=== PATIENT | male | born 1960 | race American Indian/Alaskan Native ===

== ENCOUNTER 2016-09-02 00:02 | Observation (INO) | payer MEDICAID ==
[2016-09-02 00:03] VITALS: BMI 34.0
--- NOTE | 2016-09-02 01:14 | ED PDOC ---
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 States since being discharged she has not been able to take his high blood pressure medication, hydrochlorothiazide, since he has not been able to get to the pharmacy. Patient states that when he does not take his hydrochlorothiazide his legs tend to swell. He does state that he has a history of prior DVT in the past and currently has an IVC filter. Otherwise: (- ) trauma/injury, (-) chest pain, (-) dyspnea, (-) SOB, (-) hemoptysis, (-) fever , (-) CHF, (-) known malignancy. (Venessa Sheth PA-C) Past Medical History - Provider Review Nursing Documentation Reviewed: Yes - Infectious Disease Hx of Infectious Diseases: None - Cardiac Hx Hypertension: Yes Hx Peripheral Edema: Yes - Pulmonary Hx Pulmonary Embolism: Yes - Neurological Hx Seizures: Yes - Gastrointestinal Hx Gastritis: Yes - Genitourinary/Gynecological Hx Urinary Tract Infection: Yes - Psychiatric Hx Substance Use: No - Anesthesia Hx Anesthesia: No <Venessa Sheth PA-C - Last Filed: 09/02/16 01:10> Family/Social History - Physician Review Nursing Documentation Reviewed: Yes Family/Social History: No Known Family HX Smoking Status: Heavy Smoker > 10 Cigarettes Daily Hx Alcohol Use: No Hx Substance Use: No <Venessa Sheth PA-C - Last Filed: 09/02/16 01:10> Allergies/Home Meds <Venessa Sheth PA-C - Last Filed: 09/02/16 01:10> <Rufino Nowak - Last Filed: 09/02/16 06:53> Allergies/Adverse Reactions: Allergies No Known Allergies Allergy (Verified 08/28/16 06:23) Home Medications: Home Meds Medication Instructions Recorded Confirmed Enoxaparin [Lovenox] 40 mg SQ DAILY 05/17/16 05/17/16 Levetiracetam [Keppra] 750 mg PO DAILY 05/17/16 05/17/16 Review of Systems - Review of Systems Constitutional: Normal. absent: Fatigue, Weight Change, Fevers Respiratory: Normal. absent: SOB, Cough Cardiovascular: Normal, Edema (L leg). absent: Chest Pain, Palpitations Musculoskeletal: Normal. absent: Arthralgias, Back Pain Skin: Normal. absent: Rash, Pruritis Neurological: Normal. absent: Headache, Dizziness, Other (chronic L sided weakness from CVA) <Venessa Sheth PA-C - Last Filed: 09/02/16 01:10> Physical Exam <Venessa Sheth PA-C - Last Filed: 09/02/16 01:10> <Rufino Nowak - Last Filed: 09/02/16 06:53> - Physical Exam Narrative Physical Exam (Text): 09/02/16 01:15 GENERAL APPEARANCE: Patient is awake, alert, oriented x 3, in no acute distress. SKIN: Warm, dry; (-) cyanosis; (-) rash. HEAD: (-) scalp swelling, (-) tenderness. EYES: (-) conjunctival pallor, (-) scleral icterus. ENMT: Pharynx: (-) erythema; airway patent: (-) stridor; mucous membranes moist. NECK: (-) tenderness, (-) stiffness, (-) lymphadenopathy, (-) thyromegaly. CHEST AND RESPIRATORY: (-) rales, (-) rhonchi, (-) wheezes, (-) pleural friction rub; breath sounds equal bilaterally. HEART AND CARDIOVASCULAR: (-) irregularity; (-) murmur, (-) gallop, (-) pericardial rub. ABDOMEN AND GI: Soft; (-) tenderness, (-) guarding, (-) rebound, (-) palpable masses, (-) CVA tenderness. EXTREMITIES: (+) 2+ pitting edema of the L leg from the knee to the foot with ( -) tenderness and (-) palpable cord. Opposite leg: normal. Distal pulses: 2+. NEURO AND PSYCH: Mental status as above. Cranial nerves grossly intact; strength symmetric. (Venessa Sheth PA-C) Vital Signs Temp Pulse Resp BP Pulse Ox 09/02/16 05:14 98.4 F 80 16 112/78 97 09/02/16 03:07 98.0 F 77 18 110/80 98 09/02/16 00:12 99.1 F 83 18 162/94 H 97 Medical Decision Making <Venessa Sheth PA-C - Last Filed: 09/02/16 01:10> <Rufino Nowak - Last Filed: 09/02/16 06:53> ED Course and Treatment: 09/02/16 01:17 56 yo M with h/o HTN, CVA with L sided weakness, presents with L leg swelling after being d/c from rehab 3 days ago. Plan: -- Labs -- Reassess and disposition -- Duplex US LLE (Venessa Sheth PA-C) - RAD Interpretation Radiology Orders: 09/02/16 00:44 DUPLEX LOWER EXTRM VEIN LEFT [US] Stat - Medication Orders Current Medication Orders: Tetanus/Reduced Diphtheria/Acell Pertussis (Boostrix Vaccine Inj) 0.5 ml IM .ONCE ONE Stop: 09/02/16 06:50 ED OBSERVATION <Venessa Sheth PA-C - Last Filed: 09/02/16 01:10> Discharge: Yes Date of observation admission: 09/02/16 Time of observation admission: 01:00 <Rufino Nowak - Last Filed: 09/02/16 06:53> - Observation admission statement Patient is being placed in observation because:: left leg swelling (Rufino Nowak) - Goals of Observation Goals of observation are:: pending US results and disposition (Rufino Nowak) - Progress Note Progress Note: 09/02/16 03:08 Patient resting comfortably with no new complaints. 09/02/16 06:09 Patient currently sleeping with no acute distress. stable vitals. (Rufino Nowak) - PA / LEAD PRINCIPAL TECHNICAL ARCHITECT / Resident Statement MD/DO has reviewed & agrees with the documentation as recorded. <Venessa Sheth PA-C - Last Filed: 09/02/16 01:10> - PA / LEAD PRINCIPAL TECHNICAL ARCHITECT / Resident Statement / has reviewed & agrees with the documentation as recorded. <Rufino Nowak - Last Filed: 09/02/16 06:53> Disposition/Present on Arrival - Present on Arrival Any Indicators Present on Arrival: No History of DVT/PE: Yes History of Uncontrolled Diabetes: No Urinary Catheter: No History of Decub. Ulcer: No History Surgical Site Infection Following: None - Disposition Have Diagnosis and Disposition been Completed?: Yes <Venessa Sheth PA-C - Last Filed: 09/02/16 01:10> - Present on Arrival Any Indicators Present on Arrival: No - Disposition Have Diagnosis and Disposition been Completed?: Yes Disposition Time: 06:53 <Rufino oNwak - Last Filed: 09/02/16 06:53> - Disposition Diagnosis: Lower extremity edema Disposition: HOME/ ROUTINE Patient Problems: Current Active Problems Problem Status Diagnosed Lower extremity edema Acute Condition: GOOD
[2016-09-02 01:20] LABS: ADD MANUAL DIFF? NO
[2016-09-02 01:25] LABS: BASO # 0.03 K/mm3 (0.0-2.0); BASO % 0.3 % (0.0-3.0); EOS # 0.2 (0.0-0.7); EOS % 1.9 % (1.5-5.0); GRAN # 5.32 (1.4-6.5); GRAN % 54.7 % (50.0-68.0); HEMATOCRIT 36.9 % (42.0-52.0); LYMPH # 3.7 (1.2-3.4); LYMPH % 37.9 % (22.0-35.0); MEAN CELL VOLUME 75.2 fL (80.0-105.0); MEAN CORPUSCULAR HEMOGLOBIN 24.6 pg (25.0-35.0); MEAN CORPUSCULAR HGB CONC 32.8 g/dl (31.0-37.0); MONO # 0.5 (0.1-0.6); MONO % 5.2 % (1.0-6.0); PLATELET COUNT 197 10^3/uL (120.0-450.0); RED CELL DISTRIBUTION WIDTH 14.6 % (11.5-14.5); WHITE BLOOD COUNT 9.7 10^3/ul (4.5-11.0)
[2016-09-02 01:34] LABS: ALKALINE PHOSPHATASE 66 U/L (38-133); ALT/SGPT 30 U/L (7-56); AST/SGOT 24 U/L (15-59); BILIRUBIN,TOTAL 0.8 mg/dL (0.2-1.3); BLOOD UREA NITROGEN 10 mg/dL (7-21); CALCIUM 9.3 mg/dL (8.4-10.5); CARBON DIOXIDE 28 mmol/L (21-33); CHLORIDE 105 mmol/L (98-107); GFR AFRICAN-AMERICAN > 60; GLUCOSE,RANDOM 93 mg/dL (70-110); POTASSIUM 3.2 mmol/L (3.6-5.0); SODIUM 142 mmol/L (132-148); TOTAL PROTEIN 7.3 g/dL (5.8-8.3)
[2016-09-02 05:15] VITALS: BP 112/78; PULSE 80; RESP 16; TEMP 98.4; O2SAT 97
[2016-09-02] MEDS ORDERED: TDAP Vaccine 0.5 mL Syr IM ONE (06:49)
--- NOTE | 2016-09-02 09:03 | US ---
PROCEDURE: Left lower extremity venous US HISTORY: Leg pain and swelling. Evaluate for DVT. PHYSICIAN(S): Amaury Cam MD. TECHNIQUE: Duplex sonography and color-flow Doppler with graded compression were used to evaluate the deep venous system of the left lower extremity. The exam is limited by body habitus and edema. The tibial veins are not adequately seen. FINDINGS: The visualized deep venous system of the left lower extremity is sonographically normal and compressible. Normal wave forms and augmentation are seen. There is no sonographic evidence for deep venous thrombosis in the visualized segments of the left lower extremity. IMPRESSION: 1. No sonographic evidence for deep venous thrombosis in the visualized segments of the left lower extremity. 2. Limited study.
== END 2016-09-02 06:53 | disposition home or self-care (01) ==
LOC: ED 00:02 → EROBSV 01:00
PROVIDERS: ADMIT Emergency Medicine; ATTEND Emergency Medicine
DX: R60.9 Edema, unspecified (principal); I10 Essential (primary) hypertension; Z86.73 Personal history of transient ischemic attack (TIA), and cerebral infarction without residual deficits; F17.210 Nicotine dependence, cigarettes, uncomplicated; Z23 Encounter for immunization
CPT/HCPCS: 80053; 83880; 85025; 90471; 90715; 93971; 99284; G0378

== ENCOUNTER 2016-11-20 06:23 | Inpatient (IN) | payer MEDICAID ==
[2016-11-20 06:23] VITALS: BMI 34.0
--- NOTE | 2016-11-20 07:28 | ED PDOC ---
Arrival/HPI - General Chief Complaint: Shortness Of Breath Time Seen by Provider: 11/20/16 06:25 Historian: Patient - History of Present Illness Narrative History of Present Illness (Text): 11/20/16 07:19 A 56 year old male, whose past medical history includes seizure disorder and CVA with left upper and lower extremity deficit, presents to the emergency department complaining of shortness of breath since 4am this morning. Patient states the pain is worse with moment. Patient denies any fever, chills, nausea, vomiting, diarrhea, abdominal pain, chest pain, cough or any other complaints. Prior records show patient was treated for COPD/CHF. PMD: Dr. Goss Time/Duration: Other (4am this morning) Symptom Course: Unchanged Quality: Other Context: Home Past Medical History - Provider Review Nursing Documentation Reviewed: Yes - Infectious Disease Hx of Infectious Diseases: None - Cardiac Hx Atrial Fibrillation: No Hx Cardiac Arrhythmia: No Hx Congestive Heart Failure: No Hx Hypertension: Yes Hx Mitral Valve Prolapse: No Hx Pacemaker: No Hx Peripheral Edema: Yes - Pulmonary Hx Asthma: No Hx Bronchitis: No Hx Chronic Obstructive Pulmonary Disease (COPD): No Hx Emphysema: No Hx Pneumonia: No Hx Pulmonary Embolism: Yes Hx Sleep Apnea: No - Neurological HX Cerebrovascular Accident: Yes (Left sided paralysis) Hx Seizures: Yes - HEENT Hx HEENT Disorder: No - Renal Hx Renal Disorder: No - Endocrine/Metabolic Hx Endocrine Disorders: No - Hematological/Oncological Hx Blood Disorders: No - Integumentary Hx Dermatological Disorder: No - Musculoskeletal/Rheumatological Hx Falls: No Hx Unsteady Gait: Yes - Gastrointestinal Hx Gastritis: Yes - Genitourinary/Gynecological Hx Incontinence: Yes Hx Urinary Tract Infection: Yes - Psychiatric Hx Substance Use: No (as per pt) Other/Comment: noncompliance with meds/ medical regimen - Surgical History Other/Comment: ivc filter - Anesthesia Hx Anesthesia: Yes Hx Anesthesia Reactions: No Family/Social History - Physician Review Nursing Documentation Reviewed: Yes Family/Social History: No Known Family HX Smoking Status: Heavy Smoker > 10 Cigarettes Daily Hx Alcohol Use: No Hx Substance Use: No (as per pt) Allergies/Home Meds Allergies/Adverse Reactions: Allergies No Known Allergies Allergy (Verified 11/20/16 06:29) Home Medications: Home Meds Medication Instructions Recorded Confirmed Levetiracetam [Keppra] 750 mg PO DAILY 05/17/16 11/20/16 Enalapril Maleate [Vasotec] 5 mg PO DAILY 09/15/16 11/20/16 Furosemide [Lasix] 40 mg PO BID 09/15/16 11/20/16 Review of Systems - Physician Review All systems were reviewed & negative as marked: Yes - Review of Systems Constitutional: absent: Fevers, Night Sweats Respiratory: SOB. absent: Cough Cardiovascular: absent: Chest Pain Gastrointestinal: absent: Abdominal Pain, Diarrhea, Nausea, Vomiting Physical Exam Vital Signs Temp Pulse Resp BP Pulse Ox 11/20/16 10:40 69 145/103 H 11/20/16 10:39 69 145/103 H 11/20/16 10:38 69 145/103 H 11/20/16 09:55 75 19 153/99 H 96 11/20/16 08:52 164/110 H 11/20/16 07:20 97.7 F 79 19 132/99 H 96 Appearance: Positive for: Well-Appearing, Non-Toxic, Comfortable Pain Distress: None Mental Status: Positive for: Alert and Oriented X 3 - Systems Exam Head: Present: Atraumatic, Normocephalic Pupils: Present: PERRL Extroacular Muscles: Present: EOMI Conjunctiva: Present: Normal Mouth: Present: Moist Mucous Membranes Neck: Present: Normal Range of Motion Respiratory/Chest: Present: Good Air Exchange, Rales (Rales in bilateral bases) . No: Respiratory Distress, Accessory Muscle Use Cardiovascular: Present: Regular Rate and Rhythm, Normal S1, S2. No: Murmurs Abdomen: Present: Normal Bowel Sounds. No: Tenderness, Distention, Peritoneal Signs Back: Present: Normal Inspection Upper Extremity: Present: Normal Inspection, NORMAL PULSES. No: Cyanosis, Edema Lower Extremity: Present: Edema (+1 pitting edema in right lower extremity, +3 pitting edema in left lower extremity), NORMAL PULSES. No: CALF TENDERNESS Neurological: Present: GCS=15, Speech Normal Skin: Present: Warm, Dry, Normal Color. No: Rashes Psychiatric: Present: Alert, Oriented x 3, Normal Insight, Normal Concentration Medical Decision Making ED Course and Treatment: 11/20/16 07:19 EKG shows NSR at 83 BPM with LAD, nonspecific IVCD, no STEMI. Interpreted by me. 11/20/16 08:10 Chest X-ray read and interpreted by me, which shows bilateral opacities likely representing pulmonary edema. 11/20/16 08:30 Ultrasound is negative for DVT. 11/20/16 09:07 I have discussed the results and plan with the patient, who expresses understanding. Patient in agreement with plan. - Lab Interpretations Lab Results: 11/20/16 07:30 11/20/16 07:30 Lab Results 11/20/16 07:30: PT 11.1, INR 1.03, APTT 28.1 11/20/16 07:30: Sodium 143, Potassium 3.1 L, Chloride 106, Carbon Dioxide 27, Anion Gap 13, BUN 13, Creatinine 0.9, Est GFR ( Amer) > 60, Est GFR (Non- Af Amer) > 60, Random Glucose 96, Calcium 9.1, Total Bilirubin 0.9, AST 21, ALT 18, Alkaline Phosphatase 70, Troponin I 0.05, NT-Pro-B Natriuret Pep 3020 H, Total Protein 6.9, Albumin 3.7, Globulin 3.2, Albumin/Globulin Ratio 1.2 11/20/16 07:30: pO2 45, VBG pH 7.37, VBG pCO2 48.0, VBG HCO3 27.7, VBG O2 Sat ( Calc) 79.6 H, VBG Base Excess 1.7 11/20/16 07:30: WBC 10.6, RBC 5.08, Hgb 12.4 L, Hct 38.2 L, MCV 75.2 L, MCH 24.4 L, MCHC 32.5, RDW 14.2, Plt Count 237, MPV 10.6, Gran % 72.6 H, Lymph % ( Auto) 21.2 L, [place] % (Auto) 5.0, Eos % (Auto) 0.9 L, Baso % (Auto) 0.3, Gran # 7.72 H, Lymph # 2.3, [place] # 0.5, Eos # 0.1, Baso # 0.03 - RAD Interpretation Radiology Orders: 11/20/16 07:19 CHEST PORTABLE [RAD] Stat 11/20/16 07:20 DUPLEX LOWER EXTRM VEIN LEFT [US] Stat - Medication Orders Current Medication Orders: Carvedilol (Coreg) 6.25 mg PO BID [facility] Last Admin: 11/20/16 10:38 Dose: 6.25 mg Enoxaparin Sodium (Lovenox) 40 mg SC DAILY [facility] PRN Reason: Protocol Last Admin: 11/20/16 10:41 Dose: 40 mg Furosemide (Lasix) 40 mg IVP Q12 [facility] Last Admin: 11/20/16 10:42 Dose: Levetiracetam (Keppra) 750 mg PO DAILY [facility] Lisinopril (Zestril) 10 mg PO DAILY [facility] Ondansetron HCl (Zofran Inj) 4 mg IVP Q6H PRN PRN Reason: Nausea/Vomiting Pantoprazole Sodium (Protonix Ec Tab) 40 mg PO 0600 [facility] Discontinued Medications Aspirin (Aspirin Chewable) 324 mg PO STAT STA Stop: 11/20/16 07:21 Last Admin: 11/20/16 07:37 Dose: 324 mg Furosemide (Lasix) 40 mg IVP STAT STA Stop: 11/20/16 08:14 Last Admin: 11/20/16 08:52 Dose: 40 mg Levetiracetam (Keppra) 750 mg PO .EXTRA DOSE ONE Stop: 11/20/16 10:16 Last Admin: 11/20/16 10:40 Dose: 750 mg Lisinopril (Zestril) 5 mg PO DAILY [facility] Lisinopril (Zestril) 5 mg PO ONCE ONE Stop: 11/20/16 10:16 Last Admin: 11/20/16 10:40 Dose: 5 mg Lisinopril (Zestril) 10 mg PO .EXTRA DOSE ONE Stop: 11/20/16 10:16 Last Admin: 11/20/16 10:39 Dose: 10 mg Non-Formulary Medication (Enalapril Maleate [Vasotec]) 5 mg PO DAILY [facility] Potassium Chloride (K-Dur 20 Meq Er Tab) 40 meq PO STAT STA Stop: 11/20/16 08:15 Last Admin: 11/20/16 08:51 Dose: 40 meq - Scribe Statement The provider has reviewed the documentation as recorded by the Kaiden Bowles Provider Scribe Attestation: All medical record entries made by the Scribe were at my direction and personally dictated by me. I have reviewed the chart and agree that the record accurately reflects my personal performance of the history, physical exam, medical decision making, and the department course for this patient. I have also personally directed, reviewed, and agree with the discharge instructions and disposition. Disposition/Present on Arrival - Present on Arrival Any Indicators Present on Arrival: Yes History of DVT/PE: Yes History of Uncontrolled Diabetes: No Urinary Catheter: No History of Decub. Ulcer: No History Surgical Site Infection Following: None - Disposition Have Diagnosis and Disposition been Completed?: Yes Diagnosis: CHF exacerbation Disposition: HOSPITALIZED Disposition Time: 09:07 Patient Problems: Current Active Problems Problem Status Onset CHF exacerbation Acute Condition: STABLE
[2016-11-20 07:53] LABS: BASO # 0.03 K/mm3 (0.0-2.0); BASO % 0.3 % (0.0-3.0); EOS # 0.1 (0.0-0.7); EOS % 0.9 % (1.5-5.0); GRAN # 7.72 (1.4-6.5); GRAN % 72.6 % (50.0-68.0); HEMOGLOBIN 12.4 gm/dL (14.0-18.0); LYMPH # 2.3 (1.2-3.4); LYMPH % 21.2 % (22.0-35.0); MEAN CELL VOLUME 75.2 fL (80.0-105.0); MEAN CORPUSCULAR HEMOGLOBIN 24.4 pg (25.0-35.0); MEAN CORPUSCULAR HGB CONC 32.5 g/dl (31.0-37.0); MEAN PLATELET VOLUME 10.6 fl (7.0-11.0); MONO # 0.5 (0.1-0.6); PLATELET COUNT 237 10^3/uL (120.0-450.0); RBC 5.08 10^6/uL (3.5-6.1); RED CELL DISTRIBUTION WIDTH 14.2 % (11.5-14.5); WHITE BLOOD COUNT 10.6 10^3/ul (4.5-11.0)
[2016-11-20 07:54] LABS: VENOUS BLOOD GAS BASE EXCESS 1.7 mmol/L (0.0-2.0); VENOUS BLOOD GAS PO2 45 mm/Hg (30-55); VENOUS BLOOD PH 7.37 (7.32-7.43)
[2016-11-20 07:57] LABS: ALB/GLOB RATIO 1.2 (1.1-1.8); ALBUMIN 3.7 g/dL (3.0-4.8); ALT/SGPT 18 U/L (7-56); AST/SGOT 21 U/L (15-59); BLOOD UREA NITROGEN 13 mg/dL (7-21); CALCIUM 9.1 mg/dL (8.4-10.5); GFR AFRICAN-AMERICAN > 60; GFR NON-AFRICAN AMERICAN > 60
[2016-11-20 08:03] LABS: INR 1.03 (0.93-1.08); PARTIAL THROMBOPLASTIN TIME 28.1 Seconds (23.7-30.8); PROTHROMBIN TIME 11.1 Seconds (9.9-11.8)
[2016-11-20 08:08] LABS: B-TYPE NATRIURETIC PEPTIDE 3020 pg/mL (0-450); TROPONIN I 0.05 ng/mL
[2016-11-20] MEDS ORDERED: Potassium Chloride 20 mEq ER Tab PO STA (08:14)
--- NOTE | 2016-11-20 09:24 | RAD ---
HISTORY: sob COMPARISON: 05/20/2016 FINDINGS: LUNGS: No active pulmonary disease. PLEURA: No significant pleural effusion identified, no pneumothorax apparent. CARDIOVASCULAR: Mild cardiomegaly. Mild vascular congestion OSSEOUS STRUCTURES: No significant abnormalities. VISUALIZED UPPER ABDOMEN: Normal. OTHER FINDINGS: None. IMPRESSION: Mild vascular congestion
[2016-11-20 10:05] LABS: URINE BILIRUBIN NEGATIVE (NEGATIVE); URINE BLOOD NEGATIVE (NEGATIVE); URINE GLUCOSE (UA) NEGATIVE (NEGATIVE); URINE LEUKOCYTE ESTERASE NEGATIVE Leu/uL (NEGATIVE); URINE NITRATE NEGATIVE (NEGATIVE); URINE PROTEIN TRACE mg/dL (<30 mg/dL); URINE UROBILINOGEN 0.2 E.U./dL (<1 E.U./dL)
[2016-11-20 10:10] LABS: URINE APPEARANCE CLEAR (CLEAR); URINE COLOR YELLOW (YELLOW)
[2016-11-20 10:13] LABS: URINE RBC NEGATIVE /hpf (0-2); URINE WBC NEGATIVE /hpf (0-6)
[2016-11-20] MEDS ORDERED: LEVETIRACETAM 750 MG PO SCH (10:15)
[2016-11-20] MEDS ORDERED: Enoxaparin 40 mg Syringe SC SCH (10:15)
[2016-11-20] MEDS ORDERED: Non Formulary Medication (Enalapril Maleate [Vasotec] 5 MG) PO SCH (10:15)
--- NOTE | 2016-11-20 10:56 | CARD ---
APPROVED REPORT EKG Measurement Heart [id number] <Conclusion> Sinus rhythm with occasional premature ventricular complexes Possible Left atrial enlargement Nonspecific intraventricular block Cannot rule out Septal infarct, age undetermined Inferior infarct, age undetermined T wave abnormality, consider lateral ischemia
[2016-11-20] MEDS ORDERED: Enoxaparin 120 mg Syringe SC SCH (15:45)
--- NOTE | 2016-11-20 16:20 | CP.PCM.HP ---
<Farnkie Marrufo - Last Filed: 11/20/16 16:13> History of Present Illness - History of Present Illness History of Present Illness: 56 year old male, whose pmh includes COPD, CHF, seizure disorder and CVA (left upper and lower extremity neuro deficit), presents to the ED complaining of shortness of breath. Pt states that her symptom first started at 4am this morning. He denies any chest pain but does c/o of tightness. He states that this has occurred before but this time it is worse. He sleeps with 2 pillows at night and denies waking up in the middle of night gasping for air. He also states that his legs has been more swollen lately. Patient denies any headaches , dizziness, cough, f/c, nausea, vomiting, diarrhea, abdominal pain, chest pain , or any other complaints. PMH: as above PSH: denies Med: refer to [facility] ALL: [facility] SH: smokes half ppd for "many year", denies drinking or drugs FH: denies Present on Admission - Present on Admission Any Indicators Present on Admission: No Review of Systems - Review of Systems All systems: reviewed and no additional remarkable complaints except (HPI) Past Patient History - Infectious Disease Hx of Infectious Diseases: None - Past Medical History & Family History Past Medical History?: Yes - Past Social History Smoking Status: Former Smoker - CARDIAC Hx Cardia Arrhythmia: No Hx Congestive Heart Failure: Yes Hx Hypertension: Yes Hx Mitral Valve Prolapse: No Hx Pacemaker: No Hx Peripheral Edema: Yes - PULMONARY Hx Asthma: No Hx Bronchitis: No Hx Chronic Obstructive Pulmonary Disease (COPD): No Hx Emphysema: No Hx Pneumonia: No Hx Sleep Apnea: No - NEUROLOGICAL HX Cerebrovascular Accident: Yes (Left sided paralysis) Hx Seizures: Yes - HEENT Hx HEENT Problems: No - RENAL Hx Chronic Kidney Disease: No - ENDOCRINE/METABOLIC Hx Endocrine Disorders: No - HEMATOLOGICAL/ONCOLOGICAL Hx Blood Disorders: No - INTEGUMENTARY Hx Dermatological Problems: No - MUSCULOSKELETAL/RHEUMATOLOGICAL Hx Falls: Yes - GASTROINTESTINAL Hx Gastritis: Yes - GENITOURINARY/GYNECOLOGICAL Hx Incontinence: Yes Hx Urinary Tract Infection: Yes - PSYCHIATRIC Other/Comment: noncompliance with meds/ medical regimen - SURGICAL HISTORY Other/Comment: ivc filter - ANESTHESIA Hx Anesthesia: Yes Hx Anesthesia Reactions: No Meds Allergies/Adverse Reactions: Allergies Allergy/AdvReac Type Severity Reaction Status Date / Time No Known Allergies Allergy Verified 11/20/16 06:29 Physical Exam - Constitutional Appears: No Acute Distress - Head Exam Head Exam: ATRAUMATIC, NORMAL INSPECTION, NORMOCEPHALIC - Eye Exam Eye Exam: EOMI, Normal appearance, PERRL Pupil Exam: NORMAL ACCOMODATION, PERRL - ENT Exam ENT Exam: Mucous Membranes Moist, Normal Exam - Neck Exam Neck exam: Positive for: Normal Inspection - Respiratory Exam Respiratory Exam: Clear to Auscultation Bilateral, Rales. absent: Rhonchi, Wheezes Additional comments: b/l bases - Cardiovascular Exam Cardiovascular Exam: REGULAR RHYTHM, RRR, +S1, +S2 - GI/Abdominal Exam GI & Abdominal Exam: Normal Bowel Sounds, Soft. absent: Tenderness - Extremities Exam Extremities exam: Positive for: normal inspection, pedal edema. Negative for: calf tenderness - Back Exam Back exam: NORMAL INSPECTION - Neurological Exam Neurological exam: Alert, CN II-XII Intact, Normal Gait, Oriented x3, Reflexes Normal - Psychiatric Exam Psychiatric exam: Normal Affect, Normal Mood - Skin Skin Exam: Dry, Intact, Normal Color, Warm Results - Vital Signs Recent Vital Signs: Last Vital Signs Temp 98.4 F 11/20/16 12:00 Pulse 90 11/20/16 12:00 Resp 20 11/20/16 12:00 BP 127/92 H 11/20/16 12:00 Pulse Ox 96 11/20/16 09:55 - Labs Result Diagrams: 11/20/16 07:30 11/20/16 07:30 Labs: Laboratory Results - last 24 hr 11/20/16 11/20/16 09:50 13:10 Troponin I 0.04 Urine Color Yellow Urine Appearance Clear Urine pH 7.0 Ur Specific [place] 1.015 Urine Protein Trace H Urine Glucose (UA) Negative Urine Ketones Negative Urine Blood Negative Urine Nitrate Negative Urine Bilirubin Negative Urine Urobilinogen 0.2 Ur Leukocyte Esterase Negative Urine RBC Negative Urine WBC Negative Assessment & Plan - Assessment and Plan (Free Text) Assessment: 56 year old male, whose pmh includes COPD, CHF, seizure disorder and CVA (left upper and lower extremity neuro deficit), presents to the ED complaining of shortness of breath. Likely 2/2 CHF exacerbation. 1. CHF exacerbation - trops .05--> .04 - BNP: 3020 - EKG: sinus rhythm with occasional PVC, possible L atrial enlargement, non spcific intra ventricular block, cannot r/o septal infarct, inferior infarct age undeterminate, T wave abnormality, consider Lateral ischemia - CXR showed mild vascular congestion - Ext US: negative for DVT - Lasix 40mg stat, and asa 324mg stat given in ED - Lasix 40mg BID IVP started - Cardiology consulted and placed on Lovenox 110mg Q12 BID, Aldactone 25, KCl 20 po 2. HTN: - Cont Coreg, and Lisinopril 3. Seizure dx : - Cont Keppra - Seizure precautions - fall precautions 4. GI/DVT ppx - Protonix and Lovenox Case and plan was seen, reviewed and discussed in detail with Dr Chambers. <Trish MARAVILLA,Lizzie - Last Filed: 11/20/16 16:38> Results - Vital Signs Recent Vital Signs: Last Vital Signs Temp 98.4 F 11/20/16 12:00 Pulse 90 11/20/16 12:00 Resp 20 11/20/16 12:00 BP 127/92 H 11/20/16 12:00 Pulse Ox 96 11/20/16 09:55 - Labs Result Diagrams: 11/20/16 07:30 11/20/16 07:30 Labs: Laboratory Results - last 24 hr 11/20/16 11/20/16 09:50 13:10 Troponin I 0.04 Urine Color Yellow Urine Appearance Clear Urine pH 7.0 Ur Specific [place] 1.015 Urine Protein Trace H Urine Glucose (UA) Negative Urine Ketones Negative Urine Blood Negative Urine Nitrate Negative Urine Bilirubin Negative Urine Urobilinogen 0.2 Ur Leukocyte Esterase Negative Urine RBC Negative Urine WBC Negative Attending/Attestation - Attestation I have personally seen and examined this patient.: Yes I have fully participated in the care of the patient.: Yes I have reviewed all pertinent clinical information: Yes Notes (Text): Patient was seen and examined with medical charge entry specialist .Agreed with resident assessment and plan. 56 yrs old male with PMH of CHF with systolic dysfunction,EF 35%,HTN,CVA with left sided residual weakness , and non compliance with medication is admitted with worsening dyspnea associated with leg swelling, found to have acute on chronic systolic CHF, will continue IV lasix, will monitor BUN and Creatinin.We will increase dose of lisinpril, .We will repeat Echo as last Echo was concerning for apical thrombus, patient was never started on anticoagulation and no NAKIA was done.We will also get Cardiology consult. Management plan was discussed in detail with patient Education was provided.
[2016-11-21] MEDS: Pantoprazole 40 mg EC Tab PO SCH (05:41)
[2016-11-21 06:50] LABS: BASO # 0.03 K/mm3 (0.0-2.0); BASO % 0.3 % (0.0-3.0); EOS # 0.1 (0.0-0.7); EOS % 1.2 % (1.5-5.0); GRAN # 5.97 (1.4-6.5); GRAN % 60.8 % (50.0-68.0); HEMOGLOBIN 11.2 gm/dL (14.0-18.0); LYMPH # 3.2 (1.2-3.4); LYMPH % 32.1 % (22.0-35.0); MEAN CELL VOLUME 74.7 fL (80.0-105.0); MEAN CORPUSCULAR HEMOGLOBIN 23.8 pg (25.0-35.0); MEAN CORPUSCULAR HGB CONC 31.9 g/dl (31.0-37.0); MEAN PLATELET VOLUME 11.1 fl (7.0-11.0); MONO # 0.6 (0.1-0.6); MONO % 5.6 % (1.0-6.0); PLATELET COUNT 229 10^3/uL (120.0-450.0); RED CELL DISTRIBUTION WIDTH 14.2 % (11.5-14.5); WHITE BLOOD COUNT 9.8 10^3/ul (4.5-11.0)
[2016-11-21 06:58] LABS: ALB/GLOB RATIO 1.1 (1.1-1.8); ALBUMIN 3.5 g/dL (3.0-4.8); ALT/SGPT 20 U/L (7-56); AST/SGOT 24 U/L (15-59); BLOOD UREA NITROGEN 15 mg/dL (7-21); CALCIUM 9.1 mg/dL (8.4-10.5); GFR AFRICAN-AMERICAN > 60; GFR NON-AFRICAN AMERICAN > 60
[2016-11-21] MEDS ORDERED: Potassium Chloride 40 mEq/30 ml LIQ UD PO STA (07:51)
[2016-11-21] MEDS ORDERED: Potassium Chloride 20 mEq ER Tab PO STA (08:05)
[2016-11-21] MEDS: Potassium Chloride 20 mEq ER Tab PO SCH (09:34)
[2016-11-22] MEDS: Enoxaparin 120 mg Syringe SC SCH ×2 (05:53→17:10)
[2016-11-22] MEDS: Pantoprazole 40 mg EC Tab PO SCH (05:53)
[2016-11-22 07:20] LABS: BASO # 0.02 K/mm3 (0.0-2.0); BASO % 0.2 % (0.0-3.0); EOS # 0.1 (0.0-0.7); EOS % 1.1 % (1.5-5.0); GRAN # 6.62 (1.4-6.5); GRAN % 68.3 % (50.0-68.0); HEMOGLOBIN 11.8 gm/dL (14.0-18.0); LYMPH # 2.3 (1.2-3.4); MEAN CELL VOLUME 74.3 fL (80.0-105.0); MEAN CORPUSCULAR HEMOGLOBIN 23.9 pg (25.0-35.0); MEAN CORPUSCULAR HGB CONC 32.2 g/dl (31.0-37.0); MEAN PLATELET VOLUME 10.4 fl (7.0-11.0); MONO # 0.6 (0.1-0.6); MONO % 6.4 % (1.0-6.0); PLATELET COUNT 237 10^3/uL (120.0-450.0); RBC 4.94 10^6/uL (3.5-6.1); RED CELL DISTRIBUTION WIDTH 14.4 % (11.5-14.5); WHITE BLOOD COUNT 9.7 10^3/ul (4.5-11.0)
[2016-11-22] MEDS ORDERED: Potassium Chloride 20 mEq ER Tab PO STA (07:39)
[2016-11-22 07:48] LABS: ALB/GLOB RATIO 1.2 (1.1-1.8); ALBUMIN 3.7 g/dL (3.0-4.8); ALT/SGPT 24 U/L (7-56); AST/SGOT 18 U/L (15-59); BLOOD UREA NITROGEN 12 mg/dL (7-21); CALCIUM 9.3 mg/dL (8.4-10.5); GFR AFRICAN-AMERICAN > 60; GFR NON-AFRICAN AMERICAN > 60
[2016-11-22] MEDS ORDERED: Potassium Chloride 20 mEq ER Tab PO ONE (08:25)
[2016-11-22] MEDS: Potassium Chloride 20 mEq ER Tab PO SCH (09:18)
--- NOTE | 2016-11-22 10:38 | CARD ---
APPROVED REPORT EXAM: Two-dimensional and M-mode echocardiogram with Doppler and color Doppler. INDICATION CHF/R/O THROMBUS 2D DIMENSIONS Left Atrium (2D)6.8 (1.6-4.0cm)IVSd1.2 (0.7-1.1cm) LVDd6.8 (3.9-5.9cm)PWd1.3 (0.7-1.1cm) LVDs5.9 (2.5-4.0cm)FS (%) 12.8 % LVEF (%)26.5 (>50%) M-Mode DIMENSIONS Aortic Root4.00 (2.2-3.7cm)Aortic Cusp Exc.2.10 (1.5-2.0cm) Aortic Valve AoV Peak Kmqndddz928.0cm/[place] GR.8mmHg Mitral Valve E/A ratio0.0 TDI E/Lateral E'0.0E/Medial E'0.0 Pulmonary Valve PV Peak Qbxnsvgs94.9cm/sPV Peak Grad.2mmHg Tricuspid Valve TR Peak [id number]/sRAP [id number] Peak Gr.43mmHg [id number] LEFT VENTRICLE The Left Ventricle is moderately dilated. There is mild concentric left ventricular hypertrophy. The systolic function is severely impaired.EF-25% There is moderately There is moderate to severe hypokinesis in the apical anterior wall.global hypokinesis of the left ventricle. Transmitral Doppler flow pattern is Grade II-pseudonormal filling dynamics. No left ventricle thrombus noted on this study. There is no ventricular septal defect visualized. There is no left ventricular aneurysm. There is no mass noted in the left ventricle. RIGHT VENTRICLE The right ventricle is moderately dilated. There is normal right ventricular wall thickness. Systolic function is moderately reduced. ATRIA The left atrium is severely dilated. The right atrium is borderline dilated. The interatrial septum is intact with no evidence for an atrial septal defect. AORTIC VALVE The aortic valve is thickened but opens well. There is trace aortic regurgitation. There is no aortic valvular stenosis. There is no aortic valvular vegetation. MITRAL VALVE The mitral valve is thickened but opens well. Mitral regurgitation is mild to moderate. There is no mitral valve stenosis. There is no evidence of mitral valve prolapse. TRICUSPID VALVE The tricuspid valve leaflets are thickened , but open well. There is mild tricuspid regurgitation.RVSP-53 mmof Hg There is no tricuspid valve stenosis. There is no tricuspid valve prolapse or vegetation. PULMONIC VALVE The pulmonic valve is not well visualized. There is trace pulmonic valvular regurgitation. There is no pulmonic valvular stenosis. GREAT VESSELS The aortic root is normal in size. The ascending aorta is normal in size. The pulmonary artery is normal. The IVC is dilated. PERICARDIAL EFFUSION There is no pleural effusion. There is no pericardial effusion. <Conclusion> Four chamber Dilatation, C/W CMP, EF-25% There is trace aortic regurgitation. Mitral regurgitation is mild to moderate. There is mild tricuspid regurgitation.RVSP-53 mmof Hg The IVC is dilated. There is no pericardial effusion. No vegetation or thrombus noted.
--- NOTE | 2016-11-22 11:33 | CP.PCM.PN ---
<Logan Sanchez - Last Filed: 11/22/16 11:33> Subjective - Date & Time of Evaluation Date of Evaluation: 11/22/16 Time of Evaluation: 11:30 - Subjective Subjective: Medicine progress note. Attending: Trish Pt seen and examined at bedside. No acute distress. No events overnight. Pt is feeling better. No fevers, chills, vomiting, diarrhea. Objective - Vital Signs/Intake and Output Vital Signs (last 24 hours): Temp Pulse Resp BP Pulse Ox 98.8 F 68 20 118/82 97 11/22/16 06:00 11/22/16 09:23 11/22/16 06:00 11/22/16 09:23 11/22/16 06:00 Intake and Output: 11/22/16 11/22/16 06:59 18:59 Intake Total 480 Output Total 2150 Balance -1670 - Medications Medications: Current Medications Carvedilol (Coreg) 6.25 mg PO BID [facility] Last Admin: 11/22/16 09:23 Dose: 6.25 mg Enoxaparin Sodium (Lovenox) 110 mg SC Q12H [facility] PRN Reason: Protocol Last Admin: 11/22/16 05:53 Dose: 110 mg Furosemide (Lasix) 40 mg IVP 0600,1800 [facility] Last Admin: 11/22/16 05:52 Dose: 40 mg Levetiracetam (Keppra) 750 mg PO DAILY [facility] Last Admin: 11/22/16 09:20 Dose: 750 mg Lisinopril (Zestril) 10 mg PO DAILY [facility] Last Admin: 11/22/16 09:23 Dose: 10 mg Ondansetron HCl (Zofran Inj) 4 mg IVP Q6H PRN PRN Reason: Nausea/Vomiting Pantoprazole Sodium (Protonix Ec Tab) 40 mg PO 0600 [facility] Last Admin: 11/22/16 05:53 Dose: 40 mg Potassium Chloride (K-Dur 20 Meq Er Tab) 20 meq PO DAILY [facility] Last Admin: 11/22/16 09:18 Dose: 20 meq Spironolactone (Aldactone) 25 mg PO DAILY [facility] Last Admin: 11/22/16 09:20 Dose: 25 mg - Labs Labs: 11/22/16 07:10 11/22/16 07:10 PT 11.1 Seconds (9.9-11.8) 11/20/16 07:30 INR 1.03 (0.93-1.08) 11/20/16 07:30 APTT 28.1 Seconds (23.7-30.8) 11/20/16 07:30 - Constitutional Appears: Non-toxic, No Acute Distress - Head Exam Head Exam: ATRAUMATIC, NORMAL INSPECTION, NORMOCEPHALIC - Eye Exam Eye Exam: EOMI - ENT Exam ENT Exam: Mucous Membranes Moist - Neck Exam Neck Exam: Full ROM, Normal Inspection - Respiratory Exam Respiratory Exam: NORMAL BREATHING PATTERN. absent: Respiratory Distress - Cardiovascular Exam Cardiovascular Exam: +S1, +S2 - GI/Abdominal Exam GI & Abdominal Exam: Soft, Normal Bowel Sounds. 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 Likely 2/2 CHF exacerbation. 1. CHF exacerbation - trops .05--> .04 - BNP: 3020, will repeat today - EKG: sinus rhythm with occasional PVC, possible L atrial enlargement, non spcific intra ventricular block, cannot r/o septal infarct, inferior infarct age undeterminate, T wave abnormality, consider lateral ischemia - CXR showed mild vascular congestion - Ext US: negative for DVT - Lasix 40mg stat, and asa 324mg stat given in ED - Lasix 40mg BID IVP started - Cardiology consulted and placed on Lovenox 110mg Q12 BID, Aldactone 25, KCl 20 po -will repeat CXR today 2. HTN: - Cont Coreg, and Lisinopril 3. Seizure dx : - Cont Keppra - Seizure precautions - fall precautions 4. GI/DVT ppx - Protonix and Lovenox Case and plan was seen, reviewed and discussed in detail with Dr Chambers. <Trish MARAVILLA,[facility] - Last Filed: 11/22/16 17:39> Objective - Vital Signs/Intake and Output Vital Signs (last 24 hours): Temp Pulse Resp BP Pulse Ox 98 F 74 18 141/94 H 97 11/22/16 12:00 11/22/16 14:00 11/22/16 12:00 11/22/16 17:11 11/22/16 06:00 Intake and Output: 11/22/16 11/22/16 06:59 18:59 Intake Total 480 Output Total 2150 Balance -1670 - Medications Medications: Current Medications Carvedilol (Coreg) 6.25 mg PO BID [facility] Last Admin: 11/22/16 17:10 Dose: 6.25 mg Enoxaparin Sodium (Lovenox) 110 mg SC Q12H [facility] PRN Reason: Protocol Last Admin: 11/22/16 17:10 Dose: 110 mg Furosemide (Lasix) 40 mg IVP 0600,1800 [facility] Last Admin: 11/22/16 17:11 Dose: 40 mg Levetiracetam (Keppra) 750 mg PO DAILY [facility] Last Admin: 11/22/16 09:20 Dose: 750 mg Lisinopril (Zestril) 10 mg PO DAILY [facility] Last Admin: 11/22/16 09:23 Dose: 10 mg Ondansetron HCl (Zofran Inj) 4 mg IVP Q6H PRN PRN Reason: Nausea/Vomiting Pantoprazole Sodium (Protonix Ec Tab) 40 mg PO 0600 [facility] Last Admin: 11/22/16 05:53 Dose: 40 mg Potassium Chloride (K-Dur 20 Meq Er Tab) 20 meq PO DAILY [facility] Last Admin: 11/22/16 09:18 Dose: 20 meq Spironolactone (Aldactone) 25 mg PO DAILY [facility] Last Admin: 11/22/16 09:20 Dose: 25 mg - Labs Labs: 11/22/16 07:10 11/22/16 07:10 PT 11.1 Seconds (9.9-11.8) 11/20/16 07:30 INR 1.03 (0.93-1.08) 11/20/16 07:30 APTT 28.1 Seconds (23.7-30.8) 11/20/16 07:30 Attending/Attestation - Attestation I have personally seen and examined this patient.: Yes I have fully participated in the care of the patient.: Yes I have reviewed all pertinent clinical information, including history, physical exam and plan: Yes Notes (Text): 11/22/16 17:37 Patient was seen and examined with medical representative .Agreed with resident assessment and plan. Patient is improving, still has significant leg edema.Dyspnea is improving.Echo shows EF 25%, no apical thrombus. We will continue IV lasix.Renal functions are stable. Blood pressure is better controlled. K was replaced. Management plan was discussed in detail with patient Education was provided.
--- NOTE | 2016-11-22 13:02 | RAD ---
HISTORY: Chest pain, exacerbation of CHF COMPARISON: 11/20/2016. FINDINGS: LUNGS: No active pulmonary disease. PLEURA: No significant pleural effusion identified, no pneumothorax apparent. CARDIOVASCULAR: Cardiomegaly. No evidence of acute, significant cardiovascular disease. OSSEOUS STRUCTURES: No significant abnormalities. VISUALIZED UPPER ABDOMEN: Normal. OTHER FINDINGS: None. IMPRESSION: No active disease. No significant interval change compared to the prior examination(s).
--- NOTE | 2016-11-22 23:01 | CP.PCM.CON ---
History of Present Illness - History of Present Illness History of Present Illness: 56 y/o AA male, h/o HTN, CVA 5y/a residual left hemiplegia,h/o CHF, ? Apical thrombus on a recent Echo. presented with SOB Review of Systems - Constitutional Constitutional: Fatigue - Cardiovascular Cardiovascular: Orthopnea - Respiratory Respiratory: Dyspnea - Gastrointestinal Gastrointestinal: absent: As Per HPI, Abdominal Pain, Belching, Bloating, Change in Bowel Habits, Change in Stool Character, Coffee Ground Emesis, Constipation, Cramping, Diarrhea, Dyspepsia, Dysphagia, Early Satiety, Excessive Flatus, Fecal Incontinence, Heartburn, Hematemesis, Hematochezia, Loose Stools, Melena, Nausea, Odynophagia, Temesmus, Vomiting, Other - Genitourinary Genitourinary: absent: As Per HPI, Change in Urinary Stream, Difficulty Urinating, Dysuria, Flank Pain, Hematuria, Pyuria, Nocturia, Urinary Incontinence, Urinary Frequency, Urinary Hesitance, Urinary Urgency, Voiding Freq/Small Amts, Freq UTI, Hx Renal/Bladder Calculi, Hx /Renal Surgery, Bladder Distension, Other Past Patient History - Infectious Disease Hx of Infectious Diseases: None - Past Medical History & Family History Past Medical History?: Yes - Past Social History Smoking Status: Former Smoker - CARDIAC Hx Cardia Arrhythmia: No Hx Congestive Heart Failure: Yes Hx Hypertension: Yes Hx Mitral Valve Prolapse: No Hx Pacemaker: No Hx Peripheral Edema: Yes - PULMONARY Hx Asthma: No Hx Bronchitis: No Hx Chronic Obstructive Pulmonary Disease (COPD): No Hx Emphysema: No Hx Pneumonia: No Hx Sleep Apnea: No - NEUROLOGICAL HX Cerebrovascular Accident: Yes (Left sided paralysis) Hx Seizures: Yes - HEENT Hx HEENT Problems: No - RENAL Hx Chronic Kidney Disease: No - ENDOCRINE/METABOLIC Hx Endocrine Disorders: No - HEMATOLOGICAL/ONCOLOGICAL Hx Blood Disorders: No - INTEGUMENTARY Hx Dermatological Problems: No - MUSCULOSKELETAL/RHEUMATOLOGICAL Hx Falls: Yes - GASTROINTESTINAL Hx Gastritis: Yes - GENITOURINARY/GYNECOLOGICAL Hx Incontinence: Yes Hx Urinary Tract Infection: Yes - PSYCHIATRIC Other/Comment: noncompliance with meds/ medical regimen - SURGICAL HISTORY Other/Comment: ivc filter - ANESTHESIA Hx Anesthesia: Yes Hx Anesthesia Reactions: No Meds Allergies/Adverse Reactions: Allergies Allergy/AdvReac Type Severity Reaction Status Date / Time No Known Allergies Allergy Verified 11/20/16 06:29 - Medications Medications: Current Medications Carvedilol (Coreg) 6.25 mg PO BID [facility] Last Admin: 11/20/16 10:38 Dose: 6.25 mg Enoxaparin Sodium (Lovenox) 40 mg SC DAILY [facility] PRN Reason: Protocol Last Admin: 11/20/16 10:41 Dose: 40 mg Furosemide (Lasix) 40 mg IVP Q12 [facility] Last Admin: 11/20/16 10:42 Dose: Not Given Levetiracetam (Keppra) 750 mg PO DAILY [facility] Lisinopril (Zestril) 10 mg PO DAILY [facility] Ondansetron HCl (Zofran Inj) 4 mg IVP Q6H PRN PRN Reason: Nausea/Vomiting Pantoprazole Sodium (Protonix Ec Tab) 40 mg PO 0600 [facility] Physical Exam - Constitutional Appears: Well - Head Exam Head Exam: NORMAL INSPECTION - Eye Exam Eye Exam: Normal appearance - ENT Exam ENT Exam: Normal Exam - Neck Exam Neck exam: Positive for: Normal Inspection - Respiratory Exam Respiratory Exam: NORMAL BREATHING PATTERN - Cardiovascular Exam Cardiovascular Exam: REGULAR RHYTHM - Extremities Exam Extremities exam: Positive for: pedal edema Results - Vital Signs Recent Vital Signs: Last Vital Signs Temp 98.4 F 11/20/16 12:00 Pulse 90 11/20/16 12:00 Resp 20 11/20/16 12:00 BP 127/92 H 11/20/16 12:00 Pulse Ox 96 11/20/16 09:55 - Labs Result Diagrams: 11/20/16 07:30 11/20/16 07:30 Labs: Laboratory Results - last 24 hr 11/20/16 11/20/16 09:50 13:10 Troponin I 0.04 Urine Color Yellow Urine Appearance Clear Urine pH 7.0 Ur Specific [place] 1.015 Urine Protein Trace H Urine Glucose (UA) Negative Urine Ketones Negative Urine Blood Negative Urine Nitrate Negative Urine Bilirubin Negative Urine Urobilinogen 0.2 Ur Leukocyte Esterase Negative Urine RBC Negative Urine WBC Negative Assessment & Plan (1) CHF exacerbation Status: Acute (2) HTN (hypertension) Status: Acute - Assessment and Plan (Free Text) Assessment: CHF HTN h/o CVA ? Apical thrombus Hypokalemia Plan: Cont. Carvedilol (Coreg) 6.25 mg PO BID [facility] Last Admin: 06/30/17 10:38 Dose: 6.25 mg Furosemide (Lasix) 40 mg IVP Q12 [facility] Last Admin: 11/20/16 10:42 Dose: Not Given Levetiracetam (Keppra) 750 mg PO DAILY [facility] Lisinopril (Zestril) 10 mg PO DAILY [facility] Ondansetron HCl (Zofran Inj) 4 mg IVP Q6H PRN PRN Reason: Nausea/Vomiting Pantoprazole Sodium (Protonix Ec Tab) 40 mg PO 0600 [facility]
[2016-11-23 00:06] VITALS: O2SAT 100
[2016-11-23] MEDS: Pantoprazole 40 mg EC Tab PO SCH (05:41)
[2016-11-23] MEDS: Enoxaparin 120 mg Syringe SC SCH (05:41)
[2016-11-23 07:39] LABS: BASO # 0.03 K/mm3 (0.0-2.0); BASO % 0.3 % (0.0-3.0); EOS # 0.1 (0.0-0.7); EOS % 0.9 % (1.5-5.0); GRAN # 6.73 (1.4-6.5); GRAN % 67.1 % (50.0-68.0); HEMOGLOBIN 12.3 gm/dL (14.0-18.0); LYMPH # 2.6 (1.2-3.4); LYMPH % 26.2 % (22.0-35.0); MEAN CELL VOLUME 74.3 fL (80.0-105.0); MEAN CORPUSCULAR HEMOGLOBIN 23.9 pg (25.0-35.0); MEAN CORPUSCULAR HGB CONC 32.2 g/dl (31.0-37.0); MEAN PLATELET VOLUME 10.9 fl (7.0-11.0); MONO # 0.6 (0.1-0.6); MONO % 5.5 % (1.0-6.0); PLATELET COUNT 244 10^3/uL (120.0-450.0); RBC 5.14 10^6/uL (3.5-6.1); RED CELL DISTRIBUTION WIDTH 14.1 % (11.5-14.5)
[2016-11-23 08:11] LABS: ALB/GLOB RATIO 1.1 (1.1-1.8); ALBUMIN 3.9 g/dL (3.0-4.8); ALT/SGPT 19 U/L (7-56); AST/SGOT 18 U/L (15-59); BLOOD UREA NITROGEN 13 mg/dL (7-21); CALCIUM 9.4 mg/dL (8.4-10.5); GFR AFRICAN-AMERICAN > 60; GFR NON-AFRICAN AMERICAN > 60; MAGNESIUM 1.7 mg/dL (1.7-2.2)
[2016-11-23] MEDS: Potassium Chloride 20 mEq ER Tab PO SCH (10:31)
[2016-11-23 12:15] VITALS: BP 118/78; PULSE 71; RESP 18; TEMP 99
--- NOTE | 2016-11-23 14:10 | CP.PCM.PN ---
Subjective - Date & Time of Evaluation Date of Evaluation: 11/23/16 Time of Evaluation: 14:07 - Subjective Subjective: SOB improved Objective - Vital Signs/Intake and Output Vital Signs (last 24 hours): Temp Pulse Resp BP Pulse Ox 99 F 71 18 118/78 100 11/23/16 12:00 11/23/16 12:00 11/23/16 12:00 11/23/16 12:00 11/23/16 06:00 Intake and Output: 11/23/16 11/23/16 06:59 18:59 Intake Total 840 Output Total 3300 Balance -2460 - Medications Medications: Current Medications Carvedilol (Coreg) 6.25 mg PO BID [facility] Last Admin: 11/23/16 10:23 Dose: 6.25 mg Enoxaparin Sodium (Lovenox) 110 mg SC Q12H [facility] PRN Reason: Protocol Last Admin: 11/23/16 05:41 Dose: 110 mg Furosemide (Lasix) 40 mg IVP 0600,1800 [facility] Last Admin: 11/23/16 07:48 Dose: Not Given Levetiracetam (Keppra) 750 mg PO DAILY [facility] Last Admin: 11/23/16 10:22 Dose: 750 mg Lisinopril (Zestril) 10 mg PO DAILY [facility] Last Admin: 11/23/16 10:22 Dose: 10 mg Ondansetron HCl (Zofran Inj) 4 mg IVP Q6H PRN PRN Reason: Nausea/Vomiting Pantoprazole Sodium (Protonix Ec Tab) 40 mg PO 0600 [facility] Last Admin: 11/23/16 05:41 Dose: 40 mg Potassium Chloride (K-Dur 20 Meq Er Tab) 20 meq PO DAILY [facility] Last Admin: 11/23/16 10:31 Dose: 20 meq Spironolactone (Aldactone) 25 mg PO DAILY [facility] Last Admin: 11/23/16 10:22 Dose: 25 mg - Labs Labs: 11/23/16 07:15 11/23/16 07:15 PT 11.1 Seconds (9.9-11.8) 11/20/16 07:30 INR 1.03 (0.93-1.08) 11/20/16 07:30 APTT 28.1 Seconds (23.7-30.8) 11/20/16 07:30 - Head Exam Head Exam: ATRAUMATIC - Eye Exam Eye Exam: Normal appearance - Neck Exam Neck Exam: Full ROM - Respiratory Exam Respiratory Exam: Rhonchi - Cardiovascular Exam Cardiovascular Exam: REGULAR RHYTHM - Extremities Exam Extremities Exam: Pedal Edema Assessment and Plan (1) CHF exacerbation Status: Acute (2) HTN (hypertension) Status: Acute - Assessment and Plan (Free Text) Assessment: CHF repeat Echo EF 25% no LV thrombus HTN CVA Plan: Discussed with Dr. Bebeto Falcon Carvedilol (Coreg) 6.25 mg PO BID [facility] Last Admin: 11/23/16 10:23 Dose: 6.25 mg Furosemide (Lasix) 40 mg IVP 0600,1800 [facility] Last Admin: 11/23/16 07:48 Dose: Not Given Levetiracetam (Keppra) 750 mg PO DAILY [facility] Last Admin: 11/23/16 10:22 Dose: 750 mg Lisinopril (Zestril) 10 mg PO DAILY [facility] Last Admin: 11/23/16 10:22 Dose: 10 mg Ondansetron HCl (Zofran Inj) 4 mg IVP Q6H PRN PRN Reason: Nausea/Vomiting Pantoprazole Sodium (Protonix Ec Tab) 40 mg PO 0600 [facility] Last Admin: 11/23/16 05:41 Dose: 40 mg Potassium Chloride (K-Dur 20 Meq Er Tab) 20 meq PO DAILY [facility] Last Admin: 11/23/16 10:31 Dose: 20 meq Spironolactone (Aldactone) 25 mg PO DAILY [facility] Last Admin: 11/23/16 10:22 Dose: 25 mg No need for coumadin
--- NOTE | 2016-11-23 15:05 | CP.PCM.DIS ---
Addendum entered and electronically signed by Andra Mcduffie 11/23/16 17:00: Physical Exam as follows: Gen: No Acute distress Head: Atraumatic normocephalic Eyes: EOMI Mouth: MOist mucous membranes Heart: +S1 +S2. NO Murmers Lungs: CTA GI: Soft, non tender, normoactive bowel souns Neuro: Left Upper and Lower Extremity Deficits Extremities: trace Lower Extremity edema Original Note: <Andra Mcduffie - Last Filed: 11/23/16 16:01> Provider - Provider Date of Admission: 11/20/16 09:06 Attending physician: Lizzie Chambers MD Primary care physician: Ashish Goss MD Consults: Cardiology Time Spent in preparation of Discharge (in minutes): 35 Hospital Course - Lab Results Lab Results: Most Recent Lab Values WBC 10.0 10^3/ul (4.5-11.0) 11/23/16 07:15 RBC 5.14 10^6/uL (3.5-6.1) 11/23/16 07:15 Hgb 12.3 gm/dL (14.0-18.0) L 11/23/16 07:15 Hct 38.2 % (42.0-52.0) L 11/23/16 07:15 MCV 74.3 fL (80.0-105.0) L 11/23/16 07:15 MCH 23.9 pg (25.0-35.0) L 11/23/16 07:15 MCHC 32.2 g/dl (31.0-37.0) 11/23/16 07:15 RDW 14.1 % (11.5-14.5) 11/23/16 07:15 Plt Count 244 10^3/uL (120.0-450.0) 11/23/16 07:15 MPV 10.9 fl (7.0-11.0) 11/23/16 07:15 Gran % 67.1 % (50.0-68.0) 11/23/16 07:15 Lymph % (Auto) 26.2 % (22.0-35.0) 11/23/16 07:15 [place] % (Auto) 5.5 % (1.0-6.0) 11/23/16 07:15 Eos % (Auto) 0.9 % (1.5-5.0) L 11/23/16 07:15 Baso % (Auto) 0.3 % (0.0-3.0) 11/23/16 07:15 Gran # 6.73 (1.4-6.5) H 11/23/16 07:15 Lymph # 2.6 (1.2-3.4) 11/23/16 07:15 [place] # 0.6 (0.1-0.6) 11/23/16 07:15 Eos # 0.1 (0.0-0.7) 11/23/16 07:15 Baso # 0.03 K/mm3 (0.0-2.0) 11/23/16 07:15 PT 11.1 Seconds (9.9-11.8) 11/20/16 07:30 INR 1.03 (0.93-1.08) 11/20/16 07:30 APTT 28.1 Seconds (23.7-30.8) 11/20/16 07:30 pO2 45 mm/Hg (30-55) 11/20/16 07:30 VBG pH 7.37 (7.32-7.43) 11/20/16 07:30 VBG pCO2 48.0 (40-60) 11/20/16 07:30 VBG HCO3 27.7 mmol/l (21-28) 11/20/16 07:30 VBG O2 Sat (Calc) 79.6 % (40-65) H 11/20/16 07:30 VBG Base Excess 1.7 mmol/L (0.0-2.0) 11/20/16 07:30 Sodium 142 mmol/L (132-148) 11/23/16 07:15 Potassium 3.5 mmol/L (3.6-5.0) L 11/23/16 07:15 Chloride 103 mmol/L (95-110) 11/23/16 07:15 Carbon Dioxide 25 mmol/L (21-33) 11/23/16 07:15 Anion Gap 18 (10-20) 11/23/16 07:15 BUN 13 mg/dL (7-21) 11/23/16 07:15 Creatinine 1.0 mg/dL (0.5-1.4) 11/23/16 07:15 Est GFR ( Amer) > 60 11/23/16 07:15 Est GFR (Non-Af Amer) > 60 11/23/16 07:15 Random Glucose 107 mg/dL (70-110) 11/23/16 07:15 Calcium 9.4 mg/dL (8.4-10.5) 11/23/16 07:15 Phosphorus 3.4 mg/dL (2.5-4.5) 11/23/16 07:15 Magnesium 1.7 mg/dL (1.7-2.2) 11/23/16 07:15 Total Bilirubin 1.0 mg/dL (0.2-1.3) 11/23/16 07:15 AST 18 U/L (15-59) 11/23/16 07:15 ALT 19 U/L (7-56) 11/23/16 07:15 Alkaline Phosphatase 75 U/L (38-133) 11/23/16 07:15 Troponin I 0.03 ng/mL D 11/20/16 19:55 NT-Pro-B Natriuret Pep 2490 pg/mL (0-450) H 11/22/16 11:40 Total Protein 7.2 g/dL (5.8-8.3) 11/23/16 07:15 Albumin 3.9 g/dL (3.0-4.8) 11/23/16 07:15 Globulin 3.4 gm/dL 11/23/16 07:15 Albumin/Globulin Ratio 1.1 (1.1-1.8) 11/23/16 07:15 Urine Color Yellow (YELLOW) 11/20/16 09:50 Urine Appearance Clear (CLEAR) 11/20/16 09:50 Urine pH 7.0 (4.7-8.0) 11/20/16 09:50 Ur Specific [place] 1.015 (1.005-1.035) 11/20/16 09:50 Urine Protein Trace mg/dL (<30 mg/dL) H 11/20/16 09:50 Urine Glucose (UA) Negative mg/dL (NEGATIVE) 11/20/16 09:50 Urine Ketones Negative mg/dL (NEGATIVE) 11/20/16 09:50 Urine Blood Negative (NEGATIVE) 11/20/16 09:50 Urine Nitrate Negative (NEGATIVE) 11/20/16 09:50 Urine Bilirubin Negative (NEGATIVE) 11/20/16 09:50 Urine Urobilinogen 0.2 E.U./dL (<1 E.U./dL) 11/20/16 09:50 Ur Leukocyte Esterase Negative Kai/uL (NEGATIVE) 11/20/16 09:50 Urine RBC Negative /hpf (0-2) 11/20/16 09:50 Urine WBC Negative /hpf (0-6) 11/20/16 09:50 - Hospital Course Hospital Course: Hospital Course: CC: SOB Patient is a 56 year old male with a PMH of CHF exacerbation (EF 35%), COPD, seizure disorder, 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 He denied chest pain but did c/o chest tightness that has occured before but was worse on that day. He stated that his legs were also swollen. ED ordered EKG, Chest X-ray, and ultrasound ( Findings Below). Patient recieved 40mg Lasix and 324 ASA in ED. Patient was admitted for CHF and started on Lasix 40mg BID IVP. Strict I&O's and fluid/salt restriction was ordred Cardiology was consulted and started Lovenox 110mg BID, Aldactone 25, and KCL 20 po. Repeat Chest X-rays were ordered and showed improvement. Symptoms of SOB and Lower extremity edema improved. Patient will continue home medications. Lasix increased to 60mg BID, Aldactone was added and K-Dur 20 mEq PO daily added. Discussed medications and importance of fluid and salt restriction with patient. Patient agreed to plan. EKG: NSR at 83 BPM w/ LAD, nonspecific IVCD, no STEMI Chest X-ray - Showed Bialteral opacities Ultrasound: Negative for DVT - Date & Time of H&P Date of H&P: 11/20/16 Time of H&P: 11:30 Discharge Exam - Head Exam Head Exam: ATRAUMATIC Discharge Plan - Discharge Medications Prescriptions: Carvedilol [Coreg] 6.25 mg PO BID #60 tab Furosemide [Lasix] 60 mg PO BID #60 tablet Potassium Chloride [K-Dur 20 mEq ER Tab] 20 meq PO DAILY #30 tab Spironolactone [Aldactone] 25 mg PO DAILY #30 tab - Follow Up Plan Condition: STABLE Disposition: HOME/ ROUTINE Instructions: Heart Failure (DC), Heart Failure (GEN), Pacemaker (DC), Pacemaker (GEN), Pulmonary Edema (DC), Pulmonary Edema (GEN), Ascites (DC), Ascites (GEN) Referrals: Ashish Goss MD [Primary Care Provider] - <Lizzie Chambers MD - Last Filed: 11/23/16 17:27> Provider - Provider Date of Admission: 11/20/16 09:06 Attending physician: Lizzie Chambers MD Primary care physician: Ashish Goss MD Hospital Course - Lab Results Lab Results: Most Recent Lab Values WBC 10.0 10^3/ul (4.5-11.0) 11/23/16 07:15 RBC 5.14 10^6/uL (3.5-6.1) 11/23/16 07:15 Hgb 12.3 gm/dL (14.0-18.0) L 11/23/16 07:15 Hct 38.2 % (42.0-52.0) L 11/23/16 07:15 MCV 74.3 fL (80.0-105.0) L 11/23/16 07:15 MCH 23.9 pg (25.0-35.0) L 11/23/16 07:15 MCHC 32.2 g/dl (31.0-37.0) 11/23/16 07:15 RDW 14.1 % (11.5-14.5) 11/23/16 07:15 Plt Count 244 10^3/uL (120.0-450.0) 11/23/16 07:15 MPV 10.9 fl (7.0-11.0) 11/23/16 07:15 Gran % 67.1 % (50.0-68.0) 11/23/16 07:15 Lymph % (Auto) 26.2 % (22.0-35.0) 11/23/16 07:15 [place] % (Auto) 5.5 % (1.0-6.0) 11/23/16 07:15 Eos % (Auto) 0.9 % (1.5-5.0) L 11/23/16 07:15 Baso % (Auto) 0.3 % (0.0-3.0) 11/23/16 07:15 Gran # 6.73 (1.4-6.5) H 11/23/16 07:15 Lymph # 2.6 (1.2-3.4) 11/23/16 07:15 [place] # 0.6 (0.1-0.6) 11/23/16 07:15 Eos # 0.1 (0.0-0.7) 11/23/16 07:15 Baso # 0.03 K/mm3 (0.0-2.0) 11/23/16 07:15 PT 11.1 Seconds (9.9-11.8) 11/20/16 07:30 INR 1.03 (0.93-1.08) 11/20/16 07:30 APTT 28.1 Seconds (23.7-30.8) 11/20/16 07:30 pO2 45 mm/Hg (30-55) 11/20/16 07:30 VBG pH 7.37 (7.32-7.43) 11/20/16 07:30 VBG pCO2 48.0 (40-60) 11/20/16 07:30 VBG HCO3 27.7 mmol/l (21-28) 11/20/16 07:30 VBG O2 Sat (Calc) 79.6 % (40-65) H 11/20/16 07:30 VBG Base Excess 1.7 mmol/L (0.0-2.0) 11/20/16 07:30 Sodium 142 mmol/L (132-148) 11/23/16 07:15 Potassium 3.5 mmol/L (3.6-5.0) L 11/23/16 07:15 Chloride 103 mmol/L (95-110) 11/23/16 07:15 Carbon Dioxide 25 mmol/L (21-33) 11/23/16 07:15 Anion Gap 18 (10-20) 11/23/16 07:15 BUN 13 mg/dL (7-21) 11/23/16 07:15 Creatinine 1.0 mg/dL (0.5-1.4) 11/23/16 07:15 Est GFR ( Amer) > 60 11/23/16 07:15 Est GFR (Non-Af Amer) > 60 11/23/16 07:15 Random Glucose 107 mg/dL (70-110) 11/23/16 07:15 Calcium 9.4 mg/dL (8.4-10.5) 11/23/16 07:15 Phosphorus 3.4 mg/dL (2.5-4.5) 11/23/16 07:15 Magnesium 1.7 mg/dL (1.7-2.2) 11/23/16 07:15 Total Bilirubin 1.0 mg/dL (0.2-1.3) 11/23/16 07:15 AST 18 U/L (15-59) 11/23/16 07:15 ALT 19 U/L (7-56) 11/23/16 07:15 Alkaline Phosphatase 75 U/L (38-133) 11/23/16 07:15 Troponin I 0.03 ng/mL D 11/20/16 19:55 NT-Pro-B Natriuret Pep 2490 pg/mL (0-450) H 11/22/16 11:40 Total Protein 7.2 g/dL (5.8-8.3) 11/23/16 07:15 Albumin 3.9 g/dL (3.0-4.8) 11/23/16 07:15 Globulin 3.4 gm/dL 11/23/16 07:15 Albumin/Globulin Ratio 1.1 (1.1-1.8) 11/23/16 07:15 Urine Color Yellow (YELLOW) 11/20/16 09:50 Urine Appearance Clear (CLEAR) 11/20/16 09:50 Urine pH 7.0 (4.7-8.0) 11/20/16 09:50 Ur Specific [place] 1.015 (1.005-1.035) 11/20/16 09:50 Urine Protein Trace mg/dL (<30 mg/dL) H 11/20/16 09:50 Urine Glucose (UA) Negative mg/dL (NEGATIVE) 11/20/16 09:50 Urine Ketones Negative mg/dL (NEGATIVE) 11/20/16 09:50 Urine Blood Negative (NEGATIVE) 11/20/16 09:50 Urine Nitrate Negative (NEGATIVE) 11/20/16 09:50 Urine Bilirubin Negative (NEGATIVE) 11/20/16 09:50 Urine Urobilinogen 0.2 E.U./dL (<1 E.U./dL) 11/20/16 09:50 Ur Leukocyte Esterase Negative Kai/uL (NEGATIVE) 11/20/16 09:50 Urine RBC Negative /hpf (0-2) 11/20/16 09:50 Urine WBC Negative /hpf (0-6) 11/20/16 09:50 Attending/Attestation - Attestation I have personally seen and examined this patient.: Yes I have fully participated in the care of the patient.: Yes I have reviewed all pertinent clinical information, including history, physical exam and plan: Yes Notes (Text): 11/23/16 17:24 Patient was seen and examined with medical attendant .Agreed with resident assessment and plan. 56 yrs old male with PMH of CHF with systolic dysfunction,EF 35%,HTN,CVA with left sided residual weakness , and non compliance with medication was admitted with worsening dyspnea associated with leg swelling, found to have acute on chronic systolic CHF, Patient responded well to IV lasix, his antihypertensive medications were adjusted.Dyspnea and leg swelling has improved.Patient repeat Echo showed EF 25%, there was no cardiac thrombus.Renal functions are stable.Patient is feeling at his base line.He is on room air at the time of discharge. The issue of compliance with medication, fluid intake and dietary compliance was discussed in detail.Patient will be discharged home and will follow up with his PCP. Management plan was discussed in detail with patient Education was provided.
--- NOTE | 2016-11-24 12:00 | CP.PCM.PN ---
Subjective - Date & Time of Evaluation Date of Evaluation: 11/21/16 Time of Evaluation: 11:00 - Subjective Subjective: Medicine Progress note: No sob or chest pain. Doing better. Objective - Vital Signs/Intake and Output Vital Signs (last 24 hours): Temp Pulse Resp BP Pulse Ox 98.9 F 70 18 122/83 98 11/21/16 06:00 11/21/16 09:35 11/21/16 06:00 11/21/16 09:35 11/21/16 06:00 Intake and Output: 11/21/16 11/21/16 06:59 18:59 Intake Total 1022 Output Total 400 Balance 622 - Medications Medications: Current Medications Carvedilol (Coreg) 6.25 mg PO BID [facility] Last Admin: 11/21/16 09:35 Dose: 6.25 mg Enoxaparin Sodium (Lovenox) 110 mg SC Q12H GITA PRN Reason: Protocol Last Admin: 11/20/16 16:55 Dose: 110 mg Furosemide (Lasix) 40 mg IVP 0600,1800 [facility] Levetiracetam (Keppra) 750 mg PO DAILY [facility] Last Admin: 11/21/16 09:34 Dose: 750 mg Lisinopril (Zestril) 10 mg PO DAILY [facility] Last Admin: 11/21/16 09:34 Dose: 10 mg Ondansetron HCl (Zofran Inj) 4 mg IVP Q6H PRN PRN Reason: Nausea/Vomiting Pantoprazole Sodium (Protonix Ec Tab) 40 mg PO 0600 [facility] Last Admin: 11/21/16 05:41 Dose: 40 mg Potassium Chloride (K-Dur 20 Meq Er Tab) 20 meq PO DAILY [facility] Last Admin: 11/21/16 09:34 Dose: 20 meq Spironolactone (Aldactone) 25 mg PO DAILY [facility] Last Admin: 11/21/16 09:34 Dose: 25 mg - Labs Labs: 11/21/16 06:30 11/21/16 06:30 PT 11.1 Seconds (9.9-11.8) 11/20/16 07:30 INR 1.03 (0.93-1.08) 11/20/16 07:30 APTT 28.1 Seconds (23.7-30.8) 11/20/16 07:30 - Constitutional Appears: No Acute Distress - Head Exam Head Exam: ATRAUMATIC, NORMAL INSPECTION, NORMOCEPHALIC - Eye Exam Eye Exam: EOMI, Normal appearance, PERRL Pupil Exam: NORMAL ACCOMODATION, PERRL - ENT Exam ENT Exam: Mucous Membranes Moist, Normal Exam - Neck Exam Neck Exam: Full ROM - Respiratory Exam Respiratory Exam: Clear to Ausculation Bilateral, NORMAL BREATHING PATTERN. absent: Wheezes - Cardiovascular Exam Cardiovascular Exam: REGULAR RHYTHM, RRR, +S1, +S2. absent: Murmur - GI/Abdominal Exam GI & Abdominal Exam: Soft, Normal Bowel Sounds. absent: Tenderness - Extremities Exam Extremities Exam: Full ROM, Normal Capillary Refill, Normal Inspection. absent : Calf Tenderness, Joint Swelling, Pedal Edema - Back Exam Back Exam: NORMAL INSPECTION - Neurological Exam Neurological Exam: Alert, Awake, CN II-XII Intact, Normal Gait, Oriented x3 - Psychiatric Exam Psychiatric exam: Normal Affect, Normal Mood Assessment and Plan - Assessment and Plan (Free Text) Assessment: 56 year old male, whose pmh includes COPD, CHF, seizure disorder and CVA (left upper and lower extremity neuro deficit), presents to the ED complaining of shortness of breath. Likely 2/2 CHF exacerbation. 1. CHF exacerbation - Lasix 40mg BID IVP started - trops .05--> .04 - BNP: 3020 - EKG: sinus rhythm with occasional PVC, possible L atrial enlargement, non spcific intra ventricular block, cannot r/o septal infarct, inferior infarct age undeterminate, T wave abnormality, consider Lateral ischemia - CXR showed mild vascular congestion - Ext US: negative for DVT - Lasix 40mg stat, and asa 324mg stat given in ED - Cardiology consulted and placed on Lovenox 110mg Q12 BID, Aldactone 25, KCl 20 po 2. HTN: - Cont Coreg, and Lisinopril 3. Seizure dx : - Cont Keppra - Seizure precautions - fall precautions 4. GI/DVT ppx - Protonix and Lovenox Case and plan was seen, reviewed and discussed in detail with Dr Chambers.
== END 2016-11-23 16:27 | disposition home or self-care (01) | DRG 127 ==
LOC: ED 06:23 → ERH 09:06 → 2RNO 11:16
PROVIDERS: ADMIT Internal Medicine; ATTEND Internal Medicine
DX: I11.0 Hypertensive heart disease with heart failure (principal); I50.23 Acute on chronic systolic (congestive) heart failure; I69.354 Hemiplegia and hemiparesis following cerebral infarction affecting left non-dominant side; J44.9 Chronic obstructive pulmonary disease, unspecified; E87.6 Hypokalemia; G40.909 Epilepsy, unspecified, not intractable, without status epilepticus; F17.210 Nicotine dependence, cigarettes, uncomplicated; Z91.14 Patient's other noncompliance with medication regimen